=== PATIENT | male | born 1950 | race Caucasian/White ===

== ENCOUNTER 2016-12-27 09:46 | Emergency (ER) | payer OTHER ==
--- NOTE | 2016-12-27 09:55 | CPEKG ---
Heart Rate: 70 RR Interval: 857 P-R Interval: 216 QRSD Interval: 164 QT Interval: 456 QTC Interval: 493 P [place]: -25 QRS [place]: -69 T Wave [place]: 111 EKG Severity - ABNORMAL ECG - EKG Impression: ATRIAL-SENSED VENTRICULAR-PACED RHYTHM Electronically Signed By: Saba Ricardo 27-Dec-2016 13:18:39
[2016-12-27 10:05] LABS: % IMMATURE GRANULYOCYTES 0.3 % (0.0-1.1); ABSOLUTE IMMATURE GRANULOCYTES 0.02 10^3/uL (0.00-0.10); ADD DIFF? NO; ADD MORPH? NO; ADD SCAN? NO; ATYPICAL LYMPHOCYTE FLAG 10 (0-99); FRAGMENT RBC FLAG 0 (0-99); HEMATOCRIT 43.6 % (40.0-51.0); LEFT SHIFT FLG 0 (0-99); LIPEMIA HEMOLYSIS FLAG 90 (0-99); MEAN CELL HEMOGLOBIN 31.3 pg (27.9-34.1); MEAN CELL HEMOGLOBIN CONCENTR. 34.4 g/dL (32.4-36.7); MEAN CELL VOLUME 90.8 fL (81.5-99.8); MEAN PLATELET VOLUME 10.8 fL (8.7-11.7); PLATELET CLUMPS FLAG 0 (0-99); PLATELET COUNT 207 10^3/uL (150-400); RED CELL DISTRIBUTION WIDTH 13.7 % (11.5-15.2)
[2016-12-27] MEDS ORDERED: ASPIRIN 81 MG CHEWABLE TAB PO ONE (10:05)
--- NOTE | 2016-12-27 10:12 | EDPHY ---
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 He has been walking his dog for 2 hours this morning with no worsening of his chest discomfort. He does not have associated shortness of breath, nausea, or diaphoresis. He has no history of myocardial infarction. He also reports left face / scalp / arm numbness. He is having difficulty being more specific about this sensation but describes it as a "peculiar" feeling that he has never before experienced. It has been constant for over 12 hours. He denies new weakness. He has left facial weakness that is ongoing is the result of his acoustic neuroma resection. There is no change in this weakness. He is not aware of any weakness of his arms or legs. He has not had confusion or speech difficulty. No change in vision. He recently saw his computer training specialist, Dr. Ibarra, for pacemaker check. He was noted to be hypertensive at that time. He is taking ramipril 2.5 mg nightly. He is compliant with all of his medications. He is on Coumadin for anticoagulation. REVIEW OF SYSTEMS: A ten point review of systems was performed and is negative with the exception of the items mentioned in the HPI. - Medical/Surgical History PMH: 1. aortic valve replacement in 1994 2. CVA following aortic valve surgery in 1994 3. Pacemaker 4. Hypertension 5. 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 Bilateral inguinal herniorrhaphy 7. Celiac disease 8. Cunha's esophagus on pantoprazole Hx Asthma: No Hx Chronic Respiratory Disease: No Hx Diabetes: No Hx Cardiac Disease: Yes Hx Renal Disease: No Hx Cirrhosis: No Hx Alcoholism: No Hx HIV/AIDS: No Hx Splenectomy or Spleen Trauma: No Other PMH: aortic valve prosthesis/congenital bicuspid valve. Acoustic neuroma surgery. Hernia surgery. Kidney problem. 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 - Physical Exam Exam: General Appearance: Alert. Vital signs reviewed. Initial blood pressure 200/ 106 with subsequent pressure of 175/108. Eyes: Pupils equal and round, no conjunctival injection, no discharge. Anicteric. ENT, Mouth: Mucous membranes are moist, no oropharyngeal erythema or edema. Neck: No lymphadenopathy, supple. Trachea midline. Respiratory: Lungs are clear to auscultation; no wheezes, rales, or rhonchi. Cardiovascular: Regular rate and rhythm; no murmur, rub, or gallop. Mechanical valve sound. Gastrointestinal: Abdomen is soft and nontender, no masses or organomegaly, bowel sounds normal. Skin: Warm and dry, no rashes on exposed skin, normal color. Back: Nontender to palpation over the thoracolumbar spine. No CVAT. Extremities: No lower extremity edema, no calf tenderness or swelling. Neurological: Alert and oriented. Moving all four extremities easily and equally. Cranial nerves II through XII are examined and are intact with the exception of no hearing to finger rub in the left ear and left facial weakness involving the forehead and nasal labial fold/ smile. Visual acuity was not tested. Strength is 5 over 5 bilaterally with testing of all major motor groups. Sensation is intact to light touch over all 4 extremities. Gait is normal. [id number] is performed accurately. Psychiatric: Normal affect. Constitutional: Initial Vital Signs Temperature (C) 36.4 C 12/27/16 09:51 Heart Rate 68 12/27/16 09:51 Respiratory Rate 14 12/27/16 09:51 Blood Pressure 200/106 H 12/27/16 09:51 O2 Sat (%) 97 12/27/16 09:51 O2 Delivery Mode Room Air Allergies/Adverse Reactions: amoxicillin [Amoxicillin] Allergy (Severe, Verified 12/27/16 10:07) Cephalosporins Allergy (Severe, Verified 12/27/16 10:07) Anaphylaxis cephalexin monohydrate [From Keflex] Allergy (Verified 12/27/16 10:07) Uiuazbq-Npt-Fot Reductase Inhibitor Allergy (Verified 12/27/16 10:07) Home Medications: Medication Instructions Recorded Cholest Off 12/27/16 Cyanocobalamin 12/27/16 FOLIC ACID 12/27/16 Finacea 12/27/16 Fish Oil 12/27/16 Flaxseed 12/27/16 GARLIC 12/27/16 LYSINE 12/27/16 Loratadine 12/27/16 Lutein Extract/Zeaxanthin Ext 12/27/16 Montelukast Sodium 12/27/16 Multivitamin 12/27/16 Pantoprazole Sodium 12/27/16 Ramipril 12/27/16 Rhinocort Allergy 12/27/16 Saw [place] 12/27/16 Singulair 12/27/16 Triamcinolone 0.1% 12/27/16 VITAMIN D 12/27/16 VITAMIN E 12/27/16 Vitamin C 12/27/16 Vitamin D3 12/27/16 Warfarin Sodium 12/27/16 Medical Decision Making - Diagnostics Imaging Results: Imaging Impressions Chest X-Ray 12/27/16 10:06 Impression: 1. Borderline cardiac enlargement with no findings to suggest pulmonary edema. 2. See above report for additional findings. Head CT 12/27/16 10:06 Impression: 1. No acute intracranial findings. If symptoms persist and clinical suspicion warrants, consider MRI. 2. Diffuse cerebral atrophy with periventricular and subcortical low attenuation consistent with chronic microvascular ischemic gliosis. 3. Additional findings as above. Findings discussed with CHAITANYA BARDALES 12/27/2016 at 10:32. ED Course/Re-evaluation: Somewhat confusing picture of facial and arm numbness in conjunction with chest discomfort. EKG shows a paced rhythm. Initial troponin is normal. Symptoms have been present for over [address] of the brain does not show any thing acute. I reviewed the chest x-ray and the CT. On reexamination at 10:45 a.m. he states that his face and scalp is no longer numb. His arm has been feeling somewhat uncomfortable because of the blood pressure cuff, which I removed so that he can assess the sensation in his arm. He continues with some mild chest discomfort. Once the blood pressure cuff was removed he reported that he was no longer experiencing numbness or tingling of the left arm. He continues with some mild chest discomfort. INR is over 4. Remainder of his labs are normal. Troponin is normal. Blood pressures continue to be lower, although still not within a normal range. The etiology of today's symptoms remains somewhat unclear. One of my concerns is that this could be hypertensive urgency/emergency with both cardiac and neurologic symptoms. Although his neurologic symptoms have resolved he does continue with chest pain. This chest pain could be an acute coronary syndrome. I find no evidence of infection. I recommended overnight hospitalization. I have discussed the benefits of hospitalizaion with those benefits including further evaluation for stroke and heart attack. He is able to make his own medical decisions and understands the risks and benefits of remaining in the hospital vs returning home. He has decided that he does not want to be hospitalized. He has signed a form stating that he is leaving against medical advice. I have spoken with Dr. Mason Thorne, who is covering for his primary care physician, Dr. Jimenez. She agrees that hospitalization would be preferable. She also agrees that we should increase his blood pressure medication. He was formally taking ramipril 5 mg but reported subjective lightheadedness, prompting his dose to be decreased to 2.5 mg. I am recommending that he increase his dose back to 5 mg, which he will take at night. I am also recommending that he take a couple days off work this weekend, which he has agreed to do. He understands that he can return at any time and that he should do so should he have persistent or worsening symptoms. Dr. Jimenez's office will call him for an appointment early this coming week. Differential Diagnosis: Chest pain including but not limited to myocardial ischemia, pulmonary embolus, chest wall pain, pleural inflammation and pulmonary infectious causes. - Data Points Laboratory Results: Laboratory Results 12/27/16 09:57 12/27/16 09:57 12/27/16 12/27/16 12/27/16 09:57 09:57 09:57 WBC 6.14 10^3/uL 10^3/uL (3.80-9.50) RBC 4.80 10^6/uL 10^6/uL (4.40-6.38) Hgb 15.0 g/dL g/dL (13.7-17.5) Hct 43.6 % % (40.0-51.0) MCV 90.8 fL fL (81.5-99.8) MCH 31.3 pg pg (27.9-34.1) MCHC 34.4 g/dL g/dL (32.4-36.7) RDW 13.7 % % (11.5-15.2) Plt Count 207 10^3/uL 10^3/uL (150-400) MPV 10.8 fL fL (8.7-11.7) Neut % (Auto) 69.2 % % (39.3-74.2) Lymph % (Auto) 16.3 % % (15.0-45.0) [place] % (Auto) 10.9 % % (4.5-13.0) Eos % (Auto) 2.6 % % (0.6-7.6) Baso % (Auto) 0.7 % % (0.3-1.7) Nucleat RBC Rel Count 0.0 % % (0.0-0.2) Absolute Neuts (auto) 4.25 10^3/uL 10^3/uL (1.70-6.50) Absolute Lymphs (auto) 1.00 10^3/uL 10^3/uL (1.00-3.00) Absolute Monos (auto) 0.67 10^3/uL 10^3/uL (0.30-0.80) Absolute Eos (auto) 0.16 10^3/uL 10^3/uL (0.03-0.40) Absolute Basos (auto) 0.04 10^3/uL 10^3/uL (0.02-0.10) Absolute Nucleated RBC 0.00 10^3/uL 10^3/uL (0-0.01) Immature Gran % 0.3 % % (0.0-1.1) Immature Gran # 0.02 10^3/uL 10^3/uL (0.00-0.10) PT 39.2 SEC H SEC (12.0-15.0) INR 4.01 H (0.83-1.16) Sodium 142 mEq/L mEq/L (134-144) Potassium 4.1 mEq/L mEq/L (3.5-5.2) Chloride 106 mEq/L mEq/L (97-110) Carbon Dioxide 25 mEq/l mEq/l (22-31) Anion Gap 11 mEq/L mEq/L (8-16) BUN 23 mg/dL mg/dL (7-23) Creatinine 0.9 mg/dL mg/dL (0.7-1.3) Estimated GFR > 60 Glucose 100 mg/dL mg/dL (70-100) Calcium 9.3 mg/dL mg/dL (8.5-10.4) Total Bilirubin 0.8 mg/dL mg/dL (0.1-1.4) AST 32 IU/L IU/L (17-59) ALT 34 IU/L IU/L (21-72) Alkaline Phosphatase 88 IU/L IU/L (38-126) Troponin I < 0.012 ng/mL ng/mL (0-0.034) Total Protein 7.0 g/dL g/dL (6.3-8.2) Albumin 4.1 g/dL g/dL (3.5-5.0) Medications Given: Discontinued Medications Aspirin (Aspirin) 324 mg PO EDNOW ONE Stop: 12/27/16 10:06 Last Admin: 12/27/16 10:06 Dose: 324 mg Departure - Departure Disposition: Against Medical Advice Clinical Impression: Paresthesia Chest pain Qualifiers: Chest pain type: other chest pain Qualified Code(s): R07.89 - Other chest pain ; R07.8 - Other chest pain Hypertension Qualifiers: Hypertension type: essential hypertension Qualified Code(s): I10 - Essential ( primary) hypertension Condition: Good Instructions: Chest Pain (ED), Paresthesia (ED), Hypertension (ED) Additional Instructions: Dr. Jimenez's office will call you with an appointment for this coming week. If you have any new or concerning symptoms-- worsening chest pain, trouble breathing, fainting, new numbness, new weakness, confusion, difficulty speaking , fever-- please return for another evaluation. You are welcome to return to the emergency department at any time. As you know, I recommended hospitalization for further testing. You should increase your ramipril to 5 mg, taken at night. Referrals: Juan Jimenez MD [Primary Care Provider] - As per Instructions
[2016-12-27 10:21] LABS: INR 4.01 (0.83-1.16); PROTIME(PATIENT) 39.2 SEC (12.0-15.0)
[2016-12-27 10:29] LABS: ALANINE AMINOTRANSFERASE 34 IU/L (21-72); ALBUMIN 4.1 g/dL (3.5-5.0); ALKALINE PHOSPHATASE 88 IU/L (38-126); ANION GAP 11 mEq/L (8-16); ASPARTATE AMINOTRANSFERASE 32 IU/L (17-59); BILIRUBIN,TOTAL 0.8 mg/dL (0.1-1.4); CALCIUM 9.3 mg/dL (8.5-10.4); CARBON DIOXIDE 25 mEq/l (22-31); CHLORIDE 106 mEq/L (97-110); CREATININE 0.9 mg/dL (0.7-1.3); GLOMERULAR FILTRATION RATE > 60; GLUCOSE 100 mg/dL (70-100); POTASSIUM 4.1 mEq/L (3.5-5.2); SODIUM 142 mEq/L (134-144)
[2016-12-27 10:30] VITALS: RESP 16
[2016-12-27 10:35] LABS: TROPONIN I < 0.012 ng/mL (0-0.034)
[2016-12-27 11:57] VITALS: BP 171/96; PULSE 61; TEMP 97.7; O2SAT 96
== END 2016-12-27 11:54 | disposition left against medical advice (07) ==
LOC: CED 09:46
DX: R07.89 Other chest pain (principal); I10 Essential (primary) hypertension; R20.2 Paresthesia of skin; Z95.0 Presence of cardiac pacemaker; Z86.73 Personal history of transient ischemic attack (TIA), and cerebral infarction without residual deficits; Z79.01 Long term (current) use of anticoagulants
CPT/HCPCS: 70450-PO; 71020-PO; 80053-PO; 84484-PO; 85025-PO; 85610-PO